=== PATIENT | male | born 1940 | race Caucasian/White ===

== ENCOUNTER 2016-08-24 19:20 | Inpatient (IN) | payer OTHER ==
[~2016-08-24] VITALS: Ht 175.3 cm; Wt 87.6 kg
[~2016-08-24 19:20] MED LIST: ALLO100T30 PO; ASPI-515 PO; CALC200T10 PO; CYAN100T PO; FINA5TAB4 PO; FLEC100T PO; LISI-170 PO; METO-93 PO; METO25TA35 PO; PANT20TA3 PO; RANI150T8 PO; RIVA20TA PO; TAMS0.4C2 PO; WARF2.5T PO
[2016-08-24] MEDS ORDERED: ASPIRIN 81 MG TABLET CHEW ONE (20:22)
[2016-08-24] MEDS: ASPIRIN 81 MG TABLET CHEW PO ONE ×2 (20:23→20:28)
[2016-08-24] MEDS ORDERED: SODIUM CHLORIDE FLUSH 10ML SYR IVF ONE (20:30)
[2016-08-24 21:07] LABS: BLOOD UREA NITROGEN 17 mg/dL (7-18)
[2016-08-24 21:11] LABS: IS PT STATUS REG ER OR PRE ER? YES
[2016-08-24] MEDS ORDERED: SODIUM CHLORIDE FLUSH 10ML SYR IVF PRN (22:30)
[2016-08-24] MEDS ORDERED: FLECAINIDE 100MG TABLET PO SCH (23:30)
[2016-08-24 23:43] VITALS: BP_SYST 117; BP_SYST 143; BP_SYST 149; BP_DIAS 80; BP_DIAS 89; BP_DIAS 90
[2016-08-25] MEDS ORDERED: ONDANSETRON 2MG/ML, 2ML IVP PRN
[2016-08-25] MEDS ORDERED: POLYETHYLENE GLYCOL 17 GM PACKET PO PRN
[2016-08-25] MEDS ORDERED: ACETAMINOPHEN 325 MG TABLET PO PRN
[2016-08-25] MEDS ORDERED: BISACODYL 10 MG SUPP PR PRN
[2016-08-25] MEDS ORDERED: WARFARIN 2.5 MG TABLET PO-COUM SCH ×3 (00:30→09:00)
[2016-08-25 04:16] VITALS: BP 122/77
[2016-08-25 06:02] LABS: BLOOD UREA NITROGEN 21 mg/dL (7-18)
[2016-08-25 06:10] LABS: ASPARTATE AMINO TRANSFERASE 22 U/L (15-37); IS PT STATUS REG ER OR PRE ER? NO
[2016-08-25 06:50] VITALS: BP 120/80
[2016-08-25] MEDS ORDERED: ALLOPURINOL 300 MG TABLET PO SCH (09:00)
[2016-08-25] MEDS ORDERED: METOPROLOL TARTRATE 50 MG TABLET PO SCH (09:00)
[2016-08-25] MEDS ORDERED: LISINOPRIL 20 MG TABLET PO SCH (09:00)
[2016-08-25] MEDS ORDERED: CYANOCOBALOMIN 100MCG TABLET PO SCH (09:00)
[2016-08-25] MEDS ORDERED: FLECAINIDE 100MG TABLET PO SCH (09:00)
[2016-08-25] MEDS ORDERED: SENNA/DOCUSATE TABLET PO SCH (09:00)
[2016-08-25 10:07] VITALS: BP 134/80
[2016-08-25] MEDS: SODIUM CHLORIDE FLUSH 10ML SYR IVF SCH ×2 (10:08)
[2016-08-25 11:18] VITALS: BP 118/78
[2016-08-25] MEDS ORDERED: CALCIUM CARBONATE 500 MG TAB.CHEW PO PRN (11:30)
[2016-08-25 12:40] LABS: IS PT STATUS REG ER OR PRE ER? NO
[2016-08-25 14:38] VITALS: BP 120/80
== END 2016-08-25 16:42 | disposition home or self-care (01) | DRG 74 ==
LOC: ED 22:00 → EDIP 22:09 → 5SO 22:56
PROVIDERS: ADMIT Internal Medicine; ATTEND Internal Medicine
DX: G90.8 Other disorders of autonomic nervous system (principal); D68.69 Other thrombophilia; E44.1 Mild protein-calorie malnutrition; I13.0 Hypertensive heart and chronic kidney disease with heart failure and stage 1 through stage 4 chronic kidney disease, or unspecified chronic kidney disease; I50.32 Chronic diastolic (congestive) heart failure; J98.11 Atelectasis; I48.91 Unspecified atrial fibrillation; E53.8 Deficiency of other specified B group vitamins; I12.9 Hypertensive chronic kidney disease with stage 1 through stage 4 chronic kidney disease, or unspecified chronic kidney disease; I27.2 Other secondary pulmonary hypertension; N18.9 Chronic kidney disease, unspecified; E78.00 Pure hypercholesterolemia, unspecified; I48.2 Chronic atrial fibrillation; I49.5 Sick sinus syndrome; K21.9 Gastro-esophageal reflux disease without esophagitis; K44.9 Diaphragmatic hernia without obstruction or gangrene; M10.9 Gout, unspecified; Z66 Do not resuscitate; Z79.01 Long term (current) use of anticoagulants; Z87.891 Personal history of nicotine dependence; Z95.0 Presence of cardiac pacemaker; Z68.28 Body mass index [BMI] 28.0-28.9, adult
CPT/HCPCS: 36415; 71010; 80048; 80053; 82040; 83880; 84484; 85025; 85610; 85730; 93005; 93306; 93880

== ENCOUNTER 2017-10-22 15:12 | Inpatient (IN) | payer OTHER ==
[~2017-10-22] VITALS: Ht 175.3 cm; Wt 88.0 kg
[~2017-10-22 15:12] MED LIST changes: -CALC200T10 PO; +CALC200T56 PO; +RANI150T23 PO; -RANI150T8 PO
[2017-10-22 16:13] LABS: BASOPHILS # (AUTO) 0.03 x10^3/uL (0-0.1); BASOPHILS % (AUTO) 0 % (0-1); EOSINOPHILS # (AUTO) 0.41 x10^3/uL (0-0.4); EOSINOPHILS % (AUTO) 3 % (1-7); LYMPHOCYTES # (AUTO) 2.32 x10^3/uL (1-3.4); LYMPHOCYTES % (AUTO) 17 % (22-44); MD NO; MEAN CORPUSCULAR HEMOGLOBIN 33.8 pg (27.5-34.5); MEAN CORPUSCULAR HGB CONC 33.4 g/dL (33.2-36.2); MEAN CORPUSCULAR VOLUME 101.4 fL (81-97); MEAN PLATELET VOLUME 9.5 fL (7.4-10.4); MONOCYTES # (AUTO) 0.71 x10^3/uL (0.2-0.8); MONOCYTES % (AUTO) 5 % (2-9); NEUTROPHILS # (AUTO) 10.15 x10^3/uL (1.8-6.8); NEUTROPHILS % (AUTO) 75 % (42-75); PLATELET COUNT 237 x10^3/uL (130-400); RED BLOOD COUNT 4.57 x10^6/uL (4.38-5.82); RED CELL DISTRIBUTION WIDTH 14.8 % (9.4-14.8)
[2017-10-22 16:14] LABS: INTERNATIONAL NORMALIZED RATIO 1.67 (0.93-1.1)
[2017-10-22 16:18] LABS: ALANINE AMINOTRANSFERASE 36 U/L (12-78); ALBUMIN 3.3 g/dL (3.4-5.0); ANION GAP 7 mmol/L (5-15); CALCIUM 8.6 mg/dL (8.5-10.1); CHLORIDE 105 mmol/L (98-107); CREATININE 1.98 mg/dL (0.7-1.3)
[2017-10-22 16:22] LABS: ALKALINE PHOSPHATASE 106 U/L (45-117); BILIRUBIN,TOTAL 0.6 mg/dL (0.2-1.0); TOTAL PROTEIN 7.1 g/dL (6.4-8.2); TROPONIN I < 0.015 ng/mL (0.000-0.045)
[2017-10-22 17:06] LABS: MICROSCOPIC NOT IND
[2017-10-22 17:12] LABS: CULTURE INDICATED? NO
[2017-10-22 17:36] LABS: FREE T4 (FREE THYROXINE) 1.15 ng/dL (0.76-1.46); THYROID STIMULATING HORMONE 2.1 mIU/L (0.358-3.740)
[2017-10-22] MEDS ORDERED: SODIUM CHLORIDE 0.9% 1,000ML IVBOLUS ONE (18:00)
[2017-10-22] MEDS ORDERED: ACETAMINOPHEN 325 MG TABLET PO PRN (18:30)
[2017-10-22] MEDS ORDERED: hydrALAzine 20 MG/ML, 1ML IVPush PRN (18:30)
[2017-10-22] MEDS ORDERED: WARFARIN BIOPROSTHETIC VALVE PROTOCOL 2-3 XX PRN (18:30)
[2017-10-22] MEDS ORDERED: BISACODYL 10 MG SUPP PR PRN (18:30)
[2017-10-22] MEDS ORDERED: DOCUSATE 100 MG CAPSULE PO PRN (18:30)
[2017-10-22] MEDS ORDERED: POLYETHYLENE GLYCOL 17 GM PACKET PO PRN (18:30)
[2017-10-22] MEDS ORDERED: WARFARIN 3 MG TABLET PO-COUM ONE (19:00)
[2017-10-22 20:25] VITALS: BP_SYST 114; BP_SYST 121; BP_SYST 129; BP_DIAS 74; BP_DIAS 77; BP_DIAS 80
[2017-10-22 21:13] LABS: TROPONIN I < 0.015 ng/mL (0.000-0.045)
[2017-10-22] MEDS: SODIUM CHLORIDE 0.9% 1,000 ML IV SCH (21:31)
[2017-10-22] MEDS: FLECAINIDE 100MG TABLET PO SCH (21:32)
[2017-10-22] MEDS: SODIUM CHLORIDE FLUSH 10ML SYR IVF SCH (21:33)
[2017-10-23 01:44] VITALS: BP 155/100
[2017-10-23 01:48] VITALS: BP 145/93
[2017-10-23 03:20] LABS: INTERNATIONAL NORMALIZED RATIO 1.89 (0.93-1.1); PROTHROMBIN TIME 19.4 Seconds (9.6-11.5)
[2017-10-23 03:23] LABS: BASOPHILS # (AUTO) 0.03 x10^3/uL (0-0.1); BASOPHILS % (AUTO) 0 % (0-1); EOSINOPHILS # (AUTO) 0.58 x10^3/uL (0-0.4); EOSINOPHILS % (AUTO) 6 % (1-7); LYMPHOCYTES # (AUTO) 2.56 x10^3/uL (1-3.4); LYMPHOCYTES % (AUTO) 25 % (22-44); MD NO; MEAN CORPUSCULAR HEMOGLOBIN 33.6 pg (27.5-34.5); MEAN CORPUSCULAR HGB CONC 33.1 g/dL (33.2-36.2); MEAN CORPUSCULAR VOLUME 101.5 fL (81-97); MEAN PLATELET VOLUME 9.3 fL (7.4-10.4); MONOCYTES # (AUTO) 0.84 x10^3/uL (0.2-0.8); MONOCYTES % (AUTO) 8 % (2-9); NEUTROPHILS # (AUTO) 6.33 x10^3/uL (1.8-6.8); NEUTROPHILS % (AUTO) 61 % (42-75); PLATELET COUNT 189 x10^3/uL (130-400); RED BLOOD COUNT 4.22 x10^6/uL (4.38-5.82); RED CELL DISTRIBUTION WIDTH 14.9 % (9.4-14.8)
[2017-10-23 03:25] LABS: ALANINE AMINOTRANSFERASE 29 U/L (12-78); ALBUMIN 2.8 g/dL (3.4-5.0); ANION GAP 5 mmol/L (5-15); CHLORIDE 111 mmol/L (98-107); CREATININE 1.69 mg/dL (0.7-1.3)
[2017-10-23 03:29] LABS: ALKALINE PHOSPHATASE 93 U/L (45-117); BILIRUBIN,TOTAL 0.4 mg/dL (0.2-1.0); TOTAL PROTEIN 6.2 g/dL (6.4-8.2); TROPONIN I < 0.015 ng/mL (0.000-0.045)
[2017-10-23] MEDS ORDERED: WARFARIN SODIUM 2.5 MG PO SCH (09:00)
[2017-10-23] MEDS: SODIUM CHLORIDE 0.9% 1,000 ML IV SCH (10:06)
[2017-10-23] MEDS: ALLOPURINOL 300 MG TABLET PO SCH (10:06)
[2017-10-23] MEDS: FLECAINIDE 100MG TABLET PO SCH ×2 (10:06→19:52)
[2017-10-23] MEDS: METOPROLOL TARTRATE 50 MG TABLET PO SCH (10:07)
[2017-10-23] MEDS: SODIUM CHLORIDE FLUSH 10ML SYR IVF SCH ×2 (10:07→19:54)
[2017-10-23] MEDS: CYANOCOBALOMIN 100MCG TABLET PO SCH (10:07)
[2017-10-23 10:08] VITALS: BP 154/96
[2017-10-23] MEDS ORDERED: SODIUM CHLORIDE 0.9% 1,000 ML IV SCH (13:00)
[2017-10-23 14:39] VITALS: BP 148/92
[2017-10-23] MEDS ORDERED: WARFARIN 3 MG TABLET PO-COUM SCH (18:00)
[2017-10-23 19:57] VITALS: BP_SYST 115; BP_SYST 128; BP_DIAS 82; BP_DIAS 84
[2017-10-23 20:00] VITALS: BP 132/82
[2017-10-24 01:26] VITALS: BP_SYST 129; BP_SYST 147; BP_SYST 155; BP_DIAS 84; BP_DIAS 94; BP_DIAS 99
[2017-10-24 05:12] LABS: BASOPHILS # (AUTO) 0.03 x10^3/uL (0-0.1); BASOPHILS % (AUTO) 0 % (0-1); EOSINOPHILS # (AUTO) 0.62 x10^3/uL (0-0.4); EOSINOPHILS % (AUTO) 6 % (1-7); LYMPHOCYTES # (AUTO) 2.23 x10^3/uL (1-3.4); LYMPHOCYTES % (AUTO) 22 % (22-44); MD NO; MEAN CORPUSCULAR HEMOGLOBIN 33.5 pg (27.5-34.5); MEAN CORPUSCULAR HGB CONC 32.7 g/dL (33.2-36.2); MEAN CORPUSCULAR VOLUME 102.5 fL (81-97); MEAN PLATELET VOLUME 9.5 fL (7.4-10.4); MONOCYTES # (AUTO) 0.63 x10^3/uL (0.2-0.8); MONOCYTES % (AUTO) 6 % (2-9); NEUTROPHILS % (AUTO) 66 % (42-75); PLATELET COUNT 202 x10^3/uL (130-400); RED BLOOD COUNT 4.44 x10^6/uL (4.38-5.82); RED CELL DISTRIBUTION WIDTH 14.9 % (9.4-14.8)
[2017-10-24 05:14] LABS: INTERNATIONAL NORMALIZED RATIO 2.07 (0.93-1.1); PROTHROMBIN TIME 21.2 Seconds (9.6-11.5)
[2017-10-24 05:27] LABS: CHLORIDE 110 mmol/L (98-107)
[2017-10-24 05:33] LABS: ANION GAP 5 mmol/L (5-15); CALCIUM 8.7 mg/dL (8.5-10.1); CREATININE 1.53 mg/dL (0.7-1.3)
[2017-10-24 08:14] VITALS: BP_SYST 145; BP_SYST 150; BP_SYST 165; BP_DIAS 95; BP_DIAS 96; BP_DIAS 97
[2017-10-24] MEDS: FLECAINIDE 100MG TABLET PO SCH (08:50)
[2017-10-24] MEDS: METOPROLOL TARTRATE 50 MG TABLET PO SCH (08:51)
[2017-10-24] MEDS: ALLOPURINOL 300 MG TABLET PO SCH (08:51)
[2017-10-24] MEDS: CYANOCOBALOMIN 100MCG TABLET PO SCH (08:52)
[2017-10-24] MEDS: SODIUM CHLORIDE FLUSH 10ML SYR IVF SCH (08:55)
[2017-10-24] MEDS ORDERED: REGADENOSON 0.4 MG/5 ML SYRINGE ONE (09:27)
[2017-10-24 14:09] VITALS: BP_SYST 163; BP_SYST 172; BP_DIAS 109; BP_DIAS 111
[2017-10-24 16:51] VITALS: BP 165/105
[2017-10-24] MEDS ORDERED: WARFARIN 2.5 MG TABLET PO-COUM ONE (18:00)
[2017-10-24] MEDS ORDERED: WARFARIN 3 MG TABLET PO-COUM ONE (18:00)
== END 2017-10-24 18:18 | disposition home or self-care (01) | DRG 73 ==
LOC: ED 16:36 → EDIP 18:00 → 5SO 18:53
PROVIDERS: ADMIT Hospitalist; ATTEND Hospitalist
DX: G90.8 Other disorders of autonomic nervous system (principal); N17.0 Acute kidney failure with tubular necrosis; I13.0 Hypertensive heart and chronic kidney disease with heart failure and stage 1 through stage 4 chronic kidney disease, or unspecified chronic kidney disease; E44.0 Moderate protein-calorie malnutrition; D68.69 Other thrombophilia; I50.32 Chronic diastolic (congestive) heart failure; I48.91 Unspecified atrial fibrillation; I95.1 Orthostatic hypotension; D72.829 Elevated white blood cell count, unspecified; Z66 Do not resuscitate; E53.8 Deficiency of other specified B group vitamins; E78.00 Pure hypercholesterolemia, unspecified; E86.0 Dehydration; Z68.28 Body mass index [BMI] 28.0-28.9, adult; H53.2 Diplopia; I36.1 Nonrheumatic tricuspid (valve) insufficiency; I27.20 Pulmonary hypertension, unspecified; K21.9 Gastro-esophageal reflux disease without esophagitis; R73.9 Hyperglycemia, unspecified; N18.9 Chronic kidney disease, unspecified; I44.7 Left bundle-branch block, unspecified; W18.39XA Other fall on same level, initial encounter; Z82.3 Family history of stroke; Z83.3 Family history of diabetes mellitus; Z95.0 Presence of cardiac pacemaker; Y93.89 Activity, other specified; Y92.89 Other specified places as the place of occurrence of the external cause; Z87.891 Personal history of nicotine dependence; Z89.022 Acquired absence of left finger(s)
CPT/HCPCS: 36415; 70450; 71045; 78452; 78582; 80048; 80053; 81003; 83880; 84439; 84443; 84484; 85025; 85610; 85730; 93005; 93017; 93306; 93880; 96360; J2785; A9502; A9540; A9558; C9898; J7030

== ENCOUNTER → 2018-01-09 | Outpatient (CLI) | payer OTHER | END | disposition home or self-care (01) | LOC: CFH 13:23 | PROVIDERS: ATTEND Internal Medicine Cardiovascular Disease | DX: I35.8 Other nonrheumatic aortic valve disorders (principal); I07.1 Rheumatic tricuspid insufficiency; Z87.891 Personal history of nicotine dependence | CPT/HCPCS: 93306 ==

== ENCOUNTER → 2018-03-06 | Outpatient (CLI) | payer OTHER | END | disposition home or self-care (01) | LOC: CFH 08:44 | PROVIDERS: ATTEND Family Medicine | DX: I71.3 Abdominal aortic aneurysm, ruptured (principal); Z87.891 Personal history of nicotine dependence | CPT/HCPCS: 76706 ==

== ENCOUNTER → 2018-05-03 | Outpatient (CLI) | payer OTHER | END | disposition home or self-care (01) | LOC: CFH 09:53 | PROVIDERS: ATTEND Family Medicine | DX: R05 Cough (principal) | CPT/HCPCS: 71046 ==

== ENCOUNTER → 2019-05-21 | Outpatient (CLI) | payer MEDICARE ==
[~2019-05-21] MED LIST changes: -CYAN100T PO; +CYAN100T2 PO; +RANI-467 PO; -RANI150T23 PO
== END | disposition home or self-care (01) ==
LOC: CFH 08:58
PROVIDERS: ATTEND Family Medicine
DX: S22.20XA Unspecified fracture of sternum, initial encounter for closed fracture (principal); M47.814 Spondylosis without myelopathy or radiculopathy, thoracic region; J98.11 Atelectasis; Z95.0 Presence of cardiac pacemaker; W19.XXXA Unspecified fall, initial encounter; Y93.89 Activity, other specified; Y92.89 Other specified places as the place of occurrence of the external cause; Y99.8 Other external cause status
CPT/HCPCS: 71046

== ENCOUNTER → 2019-07-06 | Outpatient (CLI) | payer MEDICARE | END | disposition home or self-care (01) | LOC: CFH 12:55 | PROVIDERS: ATTEND Psychiatry & Neurology Neurology | DX: G31.1 Senile degeneration of brain, not elsewhere classified (principal); J32.0 Chronic maxillary sinusitis; G20 Parkinson's disease; F03.90 Unspecified dementia, unspecified severity, without behavioral disturbance, psychotic disturbance, mood disturbance, and anxiety; R41.3 Other amnesia | CPT/HCPCS: 70450 ==

== ENCOUNTER → 2020-07-30 | Outpatient (CLI) | payer MEDICARE ==
[~2020-07-30] MED LIST changes: -ASPI-515 PO; +ASPI-963 PO; -CYAN100T2 PO; +CYAN100T22 PO; -PANT20TA3 PO; +PANT20TA4 PO; -WARF2.5T PO; +WARF2.5T2 PO
== END | disposition home or self-care (01) ==
LOC: RAD 12:49
PROVIDERS: ATTEND Psychiatry & Neurology Neurology
DX: M51.16 Intervertebral disc disorders with radiculopathy, lumbar region (principal)
CPT/HCPCS: 72110

== ENCOUNTER 2020-08-04 13:36 | Outpatient (CLI) | payer MEDICARE | END 2020-08-04 23:59 | disposition home or self-care (01) | LOC: CVU 13:36 | PROVIDERS: ATTEND Internal Medicine Cardiovascular Disease | DX: I65.22 Occlusion and stenosis of left carotid artery (principal) | CPT/HCPCS: 93880 ==

== ENCOUNTER 2020-09-22 12:39 | Emergency (ER) | payer MEDICARE ==
[~2020-09-22] VITALS: Ht 175.3 cm; Wt 86.9 kg
--- NOTE | 2020-09-22 13:10 | NUR ---
PT HERE FOR C/O DIZZINESS FOR 1 MONTH, PT REPORTS FALLING SEVERAL TIMES, DENIES HEAD INJURY. PLACED ON ALL MONITORS, FALL PRECAUTIONS IN PLACE.
[2020-09-22 13:24] LABS: BASOPHILS % (AUTO) 1 % (0-1); EOSINOPHILS % (AUTO) 7 % (1-7); LYMPHOCYTES % (AUTO) 25 % (22-44); MEAN CORPUSCULAR HEMOGLOBIN 34.5 pg (27.5-34.5); MEAN CORPUSCULAR HGB CONC 33.5 g/dL (33.2-36.2); MEAN PLATELET VOLUME 10.3 fL (7.4-10.4); MONOCYTES % (AUTO) 8 % (2-9); NEUTROPHILS % (AUTO) 60 % (42-75); PLATELET COUNT 171 x10^3/uL (130-400); RED BLOOD COUNT 4.45 x10^6/uL (4.38-5.82); RED CELL DISTRIBUTION WIDTH 14.3 % (9.4-14.8)
[2020-09-22] MEDS ORDERED: METF-754 PO (13:24)
[2020-09-22] MEDS ORDERED: FINA5TAB4 PO (13:24)
[2020-09-22] MEDS ORDERED: ALLO300T PO (13:24)
[2020-09-22] MEDS ORDERED: ATOR10TA9 PO (13:24)
[2020-09-22 13:27] LABS: MD NO
[2020-09-22 13:36] LABS: ALANINE AMINOTRANSFERASE 24 U/L (12-78); ALBUMIN 3.6 g/dL (3.4-5.0); ANION GAP 6 mmol/L (5-15); CALCIUM 8.9 mg/dL (8.5-10.1); CHLORIDE 108 mmol/L (98-107); CREATININE 1.57 mg/dL (0.7-1.3)
[2020-09-22 13:41] LABS: ALKALINE PHOSPHATASE 111 U/L (45-117); BILIRUBIN,TOTAL 0.5 mg/dL (0.2-1.0); TOTAL PROTEIN 6.9 g/dL (6.4-8.2); TROPONIN I < 0.015 ng/mL (0.000-0.045)
--- NOTE | 2020-09-22 13:51 | NUR ---
PT OFF UNIT FOR IMAGING.
[2020-09-22 14:10] LABS: MICROSCOPIC NOT IND
--- NOTE | 2020-09-22 15:31 | NUR ---
PT RESTING IN NAD, VITALS REMAIN STABLE.
[2020-09-22 15:58] VITALS: BP 113/74
== END 2020-09-22 16:10 | disposition home or self-care (01) ==
LOC: ED 15:20
DX: R55 Syncope and collapse (principal); R42 Dizziness and giddiness; I12.9 Hypertensive chronic kidney disease with stage 1 through stage 4 chronic kidney disease, or unspecified chronic kidney disease; N18.9 Chronic kidney disease, unspecified; I48.91 Unspecified atrial fibrillation; K21.9 Gastro-esophageal reflux disease without esophagitis; E78.00 Pure hypercholesterolemia, unspecified; Z87.891 Personal history of nicotine dependence
CPT/HCPCS: 36415; 70450; 71045; 80053; 81003; 83735; 84484; 85025; 93005; 99285